=== PATIENT | male | born 1990 ===

== ENCOUNTER 2021-10-12 12:55 | Emergency (ER) | payer OTHER | END 2021-10-12 14:15 | disposition home or self-care (01) | LOC: DL.ED 12:55 | DX: S69.91XA Unspecified injury of right wrist, hand and finger(s), initial encounter (principal); W23.1XXA Caught, crushed, jammed, or pinched between stationary objects, initial encounter; Y99.0 Civilian activity done for income or pay | CPT/HCPCS: 73120-RT; 99283 ==